=== PATIENT | male | born 1940 ===

== ENCOUNTER 2023-11-17 10:11 | Outpatient (CLI) | payer MEDICARE, SELFPAY ==
--- NOTE | ~2023-11-17 | CT_ITS ---
CT Scan of the Chest without Contrast: Clinical Indication: Solitary pulmonary nodule Technique: Contiguous sections were acquired throughout the chest without intravenous contrast. Dose reduction technique was used on this scan by utilizing automated exposure control and iterative recon struction technique. The dose-length product (DLP) was 143.81 mGy-cm. Findings: There is no evidence of any significant mediastinal, hilar or axillary lymphadenopathy. The mediastin al soft tissues appear normal. There is no evidence of pleural or pericardial effusion. 6 mm right upper lobe pulmonary nodule noted medially (axial image 32). No other pulmonary nodule mena dent. Images through the upper abdomen reveal no abnormalities. Impression: 6 mm right upper lobe pulmonary nodule. According to Fleischner Society criteria, for a low-risk kalie ent, recommend 6-12 month follow-up CT, then consider additional 18-[address]. For a high-risk kalie ent, follow-up CT scans at both 6-12 months and 18-24 months are recommended. Reviewed, dictated and finalized at [facility]. Impression: 6 mm right upper lobe pulmonary nodule. According to Fleischner Society criteri a, for a low-risk patient, recommend 6-12 month follow-up CT, then consider add itional 18-[address] For a high-risk patient, follow-up CT scans at both 6-1 2 months and 18-24 months are recommended.
== END 2023-11-17 10:12 | disposition home or self-care (01) ==
LOC: MICIMG 10:13
PROVIDERS: PCP Internal Medicine; Visit Provider Internal Medicine
DX: R91.1 Solitary pulmonary nodule (principal)
CPT/HCPCS: 71250

== ENCOUNTER 2024-11-27 15:18 | Outpatient (CLI) | payer MEDICARE, SELFPAY ==
--- NOTE | ~2024-11-27 | CT_ITS ---
EXAMINATION: CT diagnostic chest wo con DATE: 11/27/2024 15:32 INDICATION: Lung nodule follow-up TECHNIQUE: Computed tomography (CT) of the chest was performed without intravenous contrast. The dose-length product was 109.06 mGy-cm. Automated exposure control and iterative reconstruction technique were employed. COMPARISON: CT dated 11/17/2023 FINDINGS: Stable 6 mm right upper lobe nodule, axial image 33. No endobronchial lesions. No pneumothorax. There are mild chronic peripheral interstitial changes, possibly early interstitial fibrosis. Calcified granuloma in the lingula. No focal pneumonia. No endobronchial lesions. Mild atherosclerosis of the aorta and coronary arteries. Heart size normal. No significant pleural or pericardial effusion. There is a low-density lesion in the left hepatic lobe, most likely benign cysts. IMPRESSION: 1. Stable 6 mm right upper lobe nodule, likely benign. Follow-up low dose CT chest in 12 months recommended. Reviewed, dictated and finalized at [facility]. IMPRESSION: 1. Stable 6 mm right upper lobe nodule, likely benign. Follow-up low dose CT est in 12 months recommended.
== END 2024-11-27 15:19 | disposition home or self-care (01) ==
LOC: MICIMG 15:18
PROVIDERS: PCP Internal Medicine; Visit Provider Internal Medicine
DX: R91.1 Solitary pulmonary nodule (principal)
CPT/HCPCS: 71250